=== PATIENT | male | born 1955 | race Caucasian/White ===

== ENCOUNTER → 2017-06-15 | Outpatient (CLI) | payer BC ==
--- NOTE | 2017-06-15 10:17 | RAD ---
INDICATION: FATIGUE, SHORT OF BREATH, CHRONIC WORSENING COMPARISON: None. FINDINGS: Frontal and lateral views of chest obtained. Cardiac silhouette is not enlarged. Degenerative changes the spine. Mild linear opacity left lung base. IMPRESSION: Mild linear opacity left lung base. Given the morphology could be atelectasis.
--- NOTE | 2017-06-15 10:20 | RAD ---
INDICATION: CHRONIC LBP, ARTHRITIS, NO SURGERY COMPARISON: 12/24/2014 IMPRESSION: Lumbar spine: 3 views of lumbar spine obtained. Multilevel degenerative changes with osteophyte formation at the vertebral body endplates as well as facet hypertrophy. No definite acute fracture or dislocation. Mild retrolisthesis of L3 on 4 and L2 on 3.
--- NOTE | 2017-06-15 10:26 | RAD ---
INDICATION: Bilateral hand numbness and tingling COMPARISON: None. IMPRESSION: Cervical spine: 3 views obtained. Degenerative changes are identified with some osteophyte formation at the vertebral body endplates. No definite acute fracture or dislocation. There is also some hypertrophy suspected at the facet and uncovertebral joints.
== END | disposition home or self-care (01) ==
LOC: DXRADRC 09:11
PROVIDERS: ATTEND Family Medicine
DX: M54.5 Low back pain (principal); G89.29 Other chronic pain; R20.2 Paresthesia of skin; R53.83 Other fatigue; R06.02 Shortness of breath; R91.8 Other nonspecific abnormal finding of lung field
CPT/HCPCS: 71020; 72040; 72100

== ENCOUNTER → 2022-01-07 | Outpatient (CLI) | payer BC ==
--- NOTE | 2022-01-07 12:18 | RAD ---
EXAM: Lumbar spine, 5 views. HISTORY: Pain. COMPARISON: 06/15/2017 FINDINGS: 5 views of the lumbar spine are obtained. There is mild S-shaped lumbar scoliosis. There is mild multilevel degenerative listhesis. There is endplate remodeling with disc space narrowing predo minantly at L2-L3. There is facet arthropathy involving L5-S1. IMPRESSION: Multilevel degenerative change, described above. No acute osseous finding. Electronically signed by: Iman Gilmore MD (01/07/2022 12:16 PM) [id number]
== END ==
LOC: RAD 11:55
PROVIDERS: ATTEND Family Medicine
DX: M47.817 Spondylosis without myelopathy or radiculopathy, lumbosacral region (principal); M48.061 Spinal stenosis, lumbar region without neurogenic claudication; M41.86 Other forms of scoliosis, lumbar region
CPT/HCPCS: 72110